=== PATIENT | female | born 1990 | race Caucasian/White ===

== ENCOUNTER 2017-09-14 23:10 | Emergency (ER) ==
[2017-09-14 23:50] VITALS: BP 91/66; TEMP 99.4; BMI 18.5
[2017-09-15] MEDS ORDERED: ZOFRAN 4 MG/2 ML IVP STA (00:06)
[2017-09-15] MEDS ORDERED: SODIUM CHLORIDE 1,000 ML IV STA (00:06)
[2017-09-15] MEDS ORDERED: PROTONIX IV IVP STA (00:06)
--- NOTE | 2017-09-15 00:11 | ED.PDOC ---
General ED Provider: Dr. BENNETT MCLEAN Chief Complaint: Nausea/Vomiting Stated Complaint: Patient is a 27 year old who comes to the Er after two days of nausea vomiting and diarrhea. States she was exposed to someone with the stomach bug. Unable to keep anything down. Also has mild abdominal cramps. Time Seen by Physician: 00:09 Mode of Arrival: Walk-In Information Source: Patient, Family Exam Limitations: No limitations Nursing and Triage Documentation Reviewed and Agree: Yes GI Complaint Exam - Vomiting/Diarrhea Complaint/Exam Onset/Duration: 2 days Symptoms Are: Still present Episodes of Vomiting over last 24 Hours: 10 Episodes of Diarrhea Over Last 24 Hours: 5 Initial Severity: Moderate Current Severity: Severe Character of Vomiting: Reports: Non-bilious Character of Diarrhea: Reports: Watery Aggravating: Reports: Food Alleviating: Reports: NPO Associated Signs and Symptoms: Reports: Dizziness, Light-headedness, Cramping Surgical Obstruction Risk Factors: Reports: None Related Surgical History: Reports: None Abdominal Findings: Present: None Kussmaul Respirations Present: No Differential Diagnoses: Dehydration, Viral Gastroenteritis, Bacterial Gastroenteritis, UTI Review of Systems - Review Of Systems Constitutional: Reports: Chills, Weakness, Loss of appetite Eyes: Reports: No symptoms Ears, Nose, Mouth, Throat: Reports: No symptoms Respiratory: Reports: No symptoms Cardiac: Reports: No symptoms GI: Reports: Abdominal pain (cramping ), Diarrhea, Nausea, Poor appetite, Poor fluid intake, Vomiting : Reports: No symptoms Musculoskeletal: Reports: No symptoms Skin: Reports: No symptoms Neurological: Reports: No symptoms Endocrine: Reports: No symptoms Hematologic/Lymphatic: Reports: No symptoms All Other Systems: Reviewed and Negative Past Medical History - Past Medical History Previously Healthy: Yes Endocrine: Reports: None Cardiovascular: Reports: None Respiratory: Reports: None Hematological: Reports: None Gastrointestinal: Reports: None Genitourinary: Reports: None Neuro/Psych: Reports: None Musculoskeletal: Reports: None Cancer: Reports: None Last Menstrual Period: 1 MONTH - Surgical History General Surgical History: Reports: - Family History Family History: Reports: None - Social History Smoking Status: Never smoker Hx Substance Use: No Alcohol Screening: None - Immunizations Tetanus Shot up to Date: Yes Physical Exam - Physical Exam Appearance: Ill-appearing, Thin Ill-appearing: Moderate Pain Distress: Mild Eyes: CICI, EOMI, Conjunctiva clear Neck: Supple Respiratory: Airway patent, Breath sounds clear, Breath sounds equal, Respirations nonlabored Cardiovascular: Tachycardia GI/: Tender (mild epigastric area ) Musculoskeletal: Normal strength, ROM intact, No edema, No calf tenderness Skin: Warm, Dry, Normal color Neurological: Sensation intact, Motor intact, Cranial nerves intact, Alert, Oriented Psychiatric: Anxious Critical Care Note - Critical Care Note Total Time (mins): 0 Course - Course Hematology/Chemistry: 09/15/17 00:18 09/15/17 00:18 Orders, Labs, Meds: Lab Review 09/15/17 09/15/17 09/15/17 00:18 00:18 00:50 WBC 14.46 H RBC 5.05 Hgb 14.9 Hct 44.3 MCV 87.7 MCH 29.5 MCHC 33.6 RDW Coeff of Keagan 14.0 Plt Count 175 Immature Gran % (Auto) 0.5 Neut % (Auto) 93.7 Lymph % (Auto) 1.7 L Frontier % (Auto) 3.5 Eos % (Auto) 0.2 Baso % (Auto) 0.4 Immature Gran # (Auto) 0.1 Neut # 13.6 H Lymph # 0.2 L Frontier # 0.5 Eos # 0.0 Baso # 0.1 Sodium 139 Potassium 4.1 Chloride 107 Carbon Dioxide 22 Anion Gap 14.1 BUN 19 H Creatinine 0.74 Estimated GFR (MDRD) 93.00 BUN/Creatinine Ratio 25.67 Glucose 126 H Calcium 9.0 Total Bilirubin 1.83 H AST 17 ALT 19 Alkaline Phosphatase 77 Total Protein 7.4 Albumin 3.5 Globulin 3.9 Albumin/Globulin Ratio 0.90 Amylase 97 Lipase 6 L Urine Color Urine Clarity Urine pH Ur Specific [place] Urine Protein Urine Glucose (UA) Urine Ketones Urine Blood Urine Nitrite Urine Bilirubin Urine Urobilinogen Ur Leukocyte Esterase Urine Test Influenza A (Rapid) Negative Influenza B (Rapid) Negative 09/15/17 09/15/17 02:00 02:00 WBC RBC Hgb Hct MCV MCH MCHC RDW Coeff of Keagan Plt Count Immature Gran % (Auto) Neut % (Auto) Lymph % (Auto) Frontier % (Auto) Eos % (Auto) Baso % (Auto) Immature Gran # (Auto) Neut # Lymph # Frontier # Eos # Baso # Sodium Potassium Chloride Carbon Dioxide Anion Gap BUN Creatinine Estimated GFR (MDRD) BUN/Creatinine Ratio Glucose Calcium Total Bilirubin AST ALT Alkaline Phosphatase Total Protein Albumin Globulin Albumin/Globulin Ratio Amylase Lipase Urine Color Yellow Urine Clarity Clear Urine pH 5.5 Ur Specific [place] 1.025 Urine Protein Negative Urine Glucose (UA) Negative Urine Ketones 3+ Urine Blood Negative Urine Nitrite Negative Urine Bilirubin 1+ Urine Urobilinogen 0.2 Ur Leukocyte Esterase Negative Urine Test Negative Influenza A (Rapid) Influenza B (Rapid) Orders Category Date Time Status ED IV/MEDIPORT/POWERPORT .ONCE EMERGENCY 09/15/17 00:06 Active AMYLASE Stat LAB 09/15/17 00:18 Completed CBC W/ AUTO DIFF Stat LAB 09/15/17 00:18 Completed COMPREHENSIVE METABOLIC PANEL Stat LAB 09/15/17 00:18 Completed FLU A & B RAPID TEST [RAPID FLU A/B] Stat LAB 09/15/17 00:50 Completed LIPASE Stat LAB 09/15/17 00:18 Completed URINALYSIS C & S IF INDICATED Stat LAB 09/15/17 02:00 Completed URINE Stat LAB 09/15/17 02:00 Completed 0.9 % Sodium Chloride [Saline Flush] MEDS 09/15/17 00:06 Discontinued 1 syr IVF PRN PRN Ondansetron HCl/Pf [Zofran 4 mg/2 ml] MEDS 09/15/17 00:06 Discontinued 4 mg IVP ONCE STA Pantoprazole Sodium [Protonix IV] MEDS 09/15/17 00:06 Discontinued 40 mg IVP ONCE STA Sodium Chloride 0.9% [Sodium Chloride] 1,000 ml MEDS 09/15/17 00:06 Discontinued IV BOLUS Medications Discontinued Medications Generic Name Dose Route Start Last Admin Trade Name Freq PRN Reason Stop Dose Admin Sodium Chloride 1,000 mls @ 1,000 mls/hr 09/15/17 00:06 09/15/17 00:30 Sodium Chloride IV 09/15/17 01:05 1,000 mls/hr BOLUS STA Administration Ondansetron HCl 4 mg 09/15/17 00:06 09/15/17 00:34 Zofran 4 Mg/2 Ml IVP 09/15/17 00:07 4 mg ONCE STA Administration Pantoprazole Sodium 40 mg 09/15/17 00:06 09/15/17 00:34 Protonix Iv IVP 09/15/17 00:07 40 mg ONCE STA Administration Sodium Chloride 1 syr 09/15/17 00:06 09/15/17 00:34 Saline Flush IVF 1 syr PRN PRN Administration To flush IV Vital Signs: Temp Pulse Resp BP Pulse Ox 09/14/17 23:46 99.4 F 123 H 18 91/66 98 Departure - Departure Time of Disposition: 01:20 Disposition: HOME SELF-CARE Discharge Problem: Gastroenteritis Instructions: Gastroenteritis (ED) Condition: Fair Pt referred to PMD for follow-up: Yes Additional Instructions: Push fluids Follow up with PCP in 3 days Take Medications as prescribed. Prescriptions: Diphenoxylate HCl/Atropine [Lomotil 2.5-0.025 mg Tablet] 1 each PO TID PRN #15 tablet PRN Reason: Diarrhea Ondansetron HCl [Zofran Tab] 4 mg PO Q8H PRN #14 tablet PRN Reason: Nausea / Vomiting Allergies/Adverse Reactions: Allergies gabapentin [From Neurontin] Allergy (Severe, Unverified 09/15/17 00:16) dizzy, unable to stand metoclopramide HCl [From Reglan] Allergy (Severe, Unverified 09/15/17 00:16) severe anxiety Home Medications: Ambulatory Orders Norethindrone [Aneta-Be] 0.35 mg PO DAILY 09/14/17 Diphenoxylate HCl/Atropine [Lomotil 2.5-0.025 mg Tablet] 1 each PO TID PRN #15 tablet 09/15/17 Ondansetron HCl [Zofran Tab] 4 mg PO Q8H PRN #14 tablet 09/15/17 Disposition Discussed With: Patient, Family
[2017-09-15 00:22] LABS: BASOPHILS # (AUTO) 0.1 K/uL (0-0.2); BASOPHILS % (AUTO) 0.4 % (0.0-3.0); EOSINOPHILS % (AUTO) 0.2 % (0.0-7.0); HEMATOCRIT 44.3 % (37.0-47.0); HEMOGLOBIN 14.9 g/dl (12.0-16.0); IMMATURE GRANULOCYTE % (AUTO) 0.5 % (0.0-5.0); LYMPHOCYTES # (AUTO) 0.2 K/uL (0.60-3.4); LYMPHOCYTES % (AUTO) 1.7 (10.0-50.0); MEAN CORPUSCULAR HEMOGLOBIN 29.5 pg (27.0-31.0); MEAN CORPUSCULAR HGB CONC 33.6 (31.8-35.4); MEAN CORPUSCULAR VOLUME 87.7 fl (81.0-99.0); MONOCYTES # (AUTO) 0.5 K/uL (0.4-2.0); MONOCYTES % (AUTO) 3.5 (0-10); NEUTROPHILS # (AUTO) 13.6 K/ul (2.0-6.9); NEUTROPHILS % (AUTO) 93.7; PLATELET COUNT 175 10^3/uL (140-440); RED BLOOD COUNT 5.05 10^6/ul (4.20-5.40); WHITE BLOOD COUNT 14.46 K/ul (4.6-10.2)
[2017-09-15 01:16] LABS: FLU INTERNAL QC INTERNAL QC VALID; RAPID FLU A NEGATIVE (NEGATIVE); RAPID FLU B NEGATIVE (NEGATIVE)
[2017-09-15 01:18] LABS: ALBUMIN 3.5 g/dL (3.4-5.0); ALBUMIN/GLOBULIN RATIO 0.9; ANION GAP 14.1; BILIRUBIN,TOTAL 1.83 mg/dL (0.00-1.20); BUN/CREATININE RATIO 25.67; CREATININE 0.74 mg/dL (0.60-1.30); POTASSIUM 4.1 mmol/L (3.5-5.10); TOTAL PROTEIN 7.4 g/dL (6.4-8.2)
[2017-09-15 02:11] LABS: ADD URINE MICROSCOPIC NO; BILIRUBIN,URINE 1+ (NEGATIVE); KETONES,URINE 3+ (NEGATIVE); LEUKOCYTE ESTERASE ,URINE Negative (NEGATIVE); NITRITE,URINE Negative (NEGATIVE); PH,URINE 5.5 (5-9); PROTEIN,URINE Negative (NEGATIVE); URINE, BLOOD Negative (NEGATIVE)
[2017-09-15 02:12] LABS: URINE PREGNANCY INTERNAL QC INTERNAL QC VALID
== END 2017-09-15 02:30 | disposition home or self-care (01) ==
LOC: ED 23:10
DX: K52.9 Noninfective gastroenteritis and colitis, unspecified (principal)
CPT/HCPCS: 36415; 80053; 81001; 81025; 82150; 83690; 85025; 87804; 96361; 96374; 96375; 99283